=== PATIENT | male | born 1975 | race Caucasian/White ===

== ENCOUNTER 2022-11-26 10:55 | Day surgery (SDC) | payer BC ==
[~2022-11-26] VITALS: Ht 180 cm; Wt 84.0 kg
[~2022-11-26 10:55] MED LIST: KETO-22 PO
--- NOTE | 2022-11-26 11:34 | ED Integumentary General ---
General Chief Complaint: Skin/Wound Problems Stated Complaint: ABSCESS NEAR ANUS Nursing Triage Note: pt has abscess to left side perianal area. pt has had ongoing issues with abscess x 13yrs but this flare up began 1wk ago. pt reports pain and white drainage from abscess. Source: patient Exam Limitations: no limitations History of Present Illness Date Seen by Provider: Nov 26, 2022 Time Seen by Provider: 11:31 Initial Comments Patient is a 47-year-old male with a history of perianal abscess around 13 years ago presents ED for rectal pain. States he started having severe pain on Tuesday. Went to [facility] and waited for 6 hours and was not seen. He states he felt relief of pressure and drainage around his anus. Patient felt fine Tuesday. Started having pain Tuesday with bowel movements. This pain progressed to got worse especially today. Attempted to have a bowel movement today and had severe pain. Noted purulent drainage from the potential abscess versus his anus. States 13 years ago he had a general surgeon surgically drain his abscess. Patient reports increasing perianal pressure and pain. Denies fever, chills, nausea, vomiting, diarrhea. Difficulty having bowel movements Allergies and Home Medications Allergies Coded Allergies: No Known Drug Allergies (Unverified , 06/07/13) Patient Home Medication List Home Medication List Reviewed: Yes Ketorolac Tromethamine (Toradol) 10 Mg Tablet, 10 MG PO Q6-8 HOURS PRN Prescribed by: PLACIDO LAN on 06/07/13 0807 Review of Systems Review of Systems Constitutional: No chills, No diaphoresis, No malaise EENTM: No ear pain, No blurred vision, No double vision, No mouth pain Respiratory: No cough, No short of breath Cardiovascular: No chest pain Gastrointestinal: No abdominal pain, No diarrhea, No nausea, No vomiting Genitourinary: No decreased output Musculoskeletal: No back pain, No joint pain, No joint swelling, No muscle pain Skin: change in color, other (Abscess perianal) All Other Systems Reviewed Negative Unless Noted: Yes Past Gzigesy-Vwcgrm-Yczrvy Hx Patient Social History Tobacco Use?: No Substance use?: No Alcohol Use?: No Immunizations Up To Date Influenza Vaccine Up-to-Date: No; Not Current Past Medical History Adverse Reaction/Blood Tranf: No Physical Exam Vital Signs Vital Signs - First Documented 11/26/22 11:12 Temp 36.1 Pulse 88 Resp 18 B/P (MAP) 157/109 (125) Pulse Ox 98 O2 Delivery Room Air Capillary Refill : Less Than 3 Seconds General Appearance: WD/WN, no apparent distress HEENT: PERRL/EOMI, normal ENT inspection, TMs normal, pharynx normal Neck: non-tender, full range of motion, supple, normal inspection Cardiovascular: regular rate, rhythm, no edema, no gallop, no JVD Respiratory: chest non-tender, lungs clear, normal breath sounds, no respiratory distress, no accessory muscle use Gastrointestinal: normal bowel sounds, non tender, soft, no organomegaly Back: normal inspection, no CVA tenderness Extremities: normal range of motion, non-tender, normal inspection, no pedal edema 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 Potential abscess with mild drainage noted to the left lower buttock.. Perianal tenderness with induration. Normal rectal tone.) Lymphatic: no adenopathy Progress/Results/Core Measures Results/Orders Lab Results Laboratory Tests Test 11/26/22 11:45 Range/Units White Blood Count 6.5 4.3-11.0 10^3/uL Red Blood Count 4.58 4.30-5.52 10^6/uL Hemoglobin 13.6 13.3-17.7 g/dL Hematocrit 38 L 40-54 % Mean Corpuscular Volume 83 80-99 fL Mean Corpuscular Hemoglobin 30 25-34 pg Mean Corpuscular Hemoglobin Concent 36 32-36 g/dL Red Cell Distribution Width 12.0 10.0-14.5 % Platelet Count 204 130-400 10^3/uL Mean Platelet Volume 9.3 9.0-12.2 fL Immature Granulocyte % (Auto) 0 % Neutrophils (%) (Auto) 58 42-75 % Lymphocytes (%) (Auto) 30 12-44 % Monocytes (%) (Auto) 9 0-12 % Eosinophils (%) (Auto) 2 0-10 % Basophils (%) (Auto) 1 0-10 % Neutrophils # (Auto) 3.8 1.8-7.8 10^3/uL Lymphocytes # (Auto) 1.9 1.0-4.0 10^3/uL Monocytes # (Auto) 0.6 0.0-1.0 10^3/uL Eosinophils # (Auto) 0.2 0.0-0.3 10^3/uL Basophils # (Auto) 0.0 0.0-0.1 10^3/uL Immature Granulocyte # (Auto) 0.0 0.0-0.1 10^3/uL Sodium Level 140 135-145 MMOL/L Potassium Level 3.7 3.6-5.0 MMOL/L Chloride Level 104 98-107 MMOL/L Carbon Dioxide Level 23 21-32 MMOL/L Anion Gap 13 5-14 MMOL/L Blood Urea Nitrogen 11 7-18 MG/DL Creatinine 1.01 0.60-1.30 MG/DL Estimat Glomerular Filtration Rate 91 BUN/Creatinine Ratio 11 Glucose Level 310 H 70-105 MG/DL Calcium Level 8.6 8.5-10.1 MG/DL Corrected Calcium 8.8 8.5-10.1 MG/DL Total Bilirubin 0.5 0.1-1.0 MG/DL Aspartate Amino Transf (AST/SGOT) 13 5-34 U/L Alanine Aminotransferase (ALT/SGPT) 21 0-55 U/L Alkaline Phosphatase 77 40-136 U/L Total Protein 6.6 6.4-8.2 GM/DL Albumin 3.8 3.2-4.5 GM/DL My Orders Orders - GISELL ANDUJAR Cbc With Automated Diff (11/26/22 11:29) Comprehensive Metabolic Panel (11/26/22 11:29) Ct Pelvis W (11/26/22 11:29) Iohexol Injection (Omnipaque 350 Mg/Ml 1 (11/26/22 11:45) Received Contrast (Hold Metformin- Contr (11/26/22 11:45) Ns (Ivpb) (Sodium Chloride 0.9% Ivpb Bag (11/26/22 11:45) Medications Given in ED Current Medications Medications Dose Ordered Sig/Danie Route Start Time Stop Time Status Last Admin Dose Admin Iohexol 100 ml ONCE ONCE IV 11/26/22 11:45 11/26/22 11:46 DC 11/26/22 12:06 80 ML Sodium Chloride 100 ml ONCE ONCE IV 11/26/22 11:45 11/26/22 11:46 DC 11/26/22 12:06 80 ML Vital Signs/I&O 11/26/22 11:12 Temp 36.1 Pulse 88 Resp 18 B/P (MAP) 157/109 (125) Pulse Ox 98 O2 Delivery Room Air Blood Pressure Mean: 125 Departure Communication (PCP) Reviewed previous ER visits, H&P, lab testing. Anal pain, perineal pain since Tuesday. History of perianal abscess drained 13 years ago. Started having pain on Tuesday with drainage. This pain continue difficulty with bowel movements. On exam does have a area of scar tissue from the previous area of drainage. Concerning for fistula versus deep abscess. Differential diagnosis of perianal abscess, deep fascia gluteal abscess, fistula. CBC, CMP was ordered. CBC CMP grossly unremarkable. Afebrile and does not appear toxic. CT scan of the [place] is concerning for a fistula from the anal verge to the perioneal jeanette along the gluteal crease. Patient was discussed with Dr. Chavira general surgeon who recommended taking person to surgery for incision and drainage with possible debridement, rectal exam under anesthesia. Patient will be going to the OR. Patient last ate around 745. Currently NPO. Impression Primary Impression: Perianal fistula Disposition: 30 STILL A PATIENT Condition: Stable Departure-Patient Inst. Decision time for Depature: 12:38 Referrals: NO,LOCAL PHYSICIAN (PCP/Family) Primary Care Physician GISELL ANDUJAR Nov 26, 2022 11:34
[2022-11-26] MEDS ORDERED: NS 100 ML (IVPB) BAG IV ONE (11:45)
[2022-11-26] MEDS ORDERED: IOHEXOL 350 MG/ML 100 ML (OMNIPAQUE 350) VIAL IV ONE (11:45)
[2022-11-26] MEDS ORDERED: HOLD METFORMIN - RECEIVED CONTRAST 20 ML VIAL IV SCH (11:45)
[2022-11-26 11:55] LABS: BASOPHILS % (AUTO) 1 % (0-10); EOSINOPHILS # (AUTO) 0.2 10^3/uL (0.0-0.3); EOSINOPHILS % (AUTO) 2 % (0-10); HEMATOCRIT 38 % (40-54); HEMOGLOBIN 13.6 g/dL (13.3-17.7); LYMPHOCYTES # (AUTO) 1.9 10^3/uL (1.0-4.0); LYMPHOCYTES % (AUTO) 30 % (12-44); MEAN CORPUSCULAR HEMOGLOBIN 30 pg (25-34); MEAN CORPUSCULAR HGB CONC 36 g/dL (32-36); MEAN CORPUSCULAR VOLUME 83 fL (80-99); MEAN PLATELET VOLUME 9.3 fL (9.0-12.2); MONOCYTES # (AUTO) 0.6 10^3/uL (0.0-1.0); MONOCYTES % (AUTO) 9 % (0-12); NEUTROPHILS # (AUTO) 3.8 10^3/uL (1.8-7.8); NEUTROPHILS % (AUTO) 58 % (42-75); PLATELET COUNT 204 10^3/uL (130-400); WHITE BLOOD COUNT 6.5 10^3/uL (4.3-11.0)
[2022-11-26 12:04] LABS: ALBUMIN 3.8 GM/DL (3.2-4.5)
[2022-11-26 12:05] LABS: POTASSIUM 3.7 MMOL/L (3.6-5.0)
[2022-11-26 12:06] LABS: CALCIUM 8.6 MG/DL (8.5-10.1)
[2022-11-26 12:07] LABS: TOTAL PROTEIN 6.6 GM/DL (6.4-8.2)
[2022-11-26 12:09] LABS: BILIRUBIN,TOTAL 0.5 MG/DL (0.1-1.0)
[2022-11-26 12:11] LABS: CREATININE SERUM 1.01 MG/DL (0.60-1.30)
--- NOTE | 2022-11-26 12:22 | Diagnostic Imaging Report ---
PROCEDURE: CT pelvis with contrast. TECHNIQUE: Oral and intravenous contrast were administered with pelvic CT performed. Auto Exposure Controls were utilized during the CT exam to meet ALARA standards for radiation dose reduction. INDICATION: Perianal abscess. COMPARISON: None available. FINDINGS: There is a rim-enhancing tract extending from the anal verge into the left perineal along the lateral margin of the gluteal crease. There are few foci of air within the tract and some low attenuation in the distal aspect. The tract appears to communicate with the skin and is most likely a perianal fistula. No inflammatory changes above the anal sphincter. No intraperitoneal fluid collection or free fluid. Appendix is normal. Urinary bladder is normal. No avascular necrosis of the femoral heads. IMPRESSION: 1. Left perianal fistula forms communication with the left perineal skin. There is potential pus within the fistula tract. 2. No intraperitoneal inflammatory changes to suggest supra-sphenteric extension. Dictated by: Dictated on workstation # [id number]
--- NOTE | 2022-11-26 13:36 | Consultation - Surgery ---
JUSTA AZEVEDO 11/26/22 1336: History of Present Illness History of Present Illness Patient Consulted On(jessi/time) 11/26/22 13:20 Date Seen by Provider: Nov 26, 2022 Time Seen by Provider: 13:00 Reason for Visit: Perianal Pain History of Present Illness Pt is a 47yo male brought in by ambulance seen lying on his side in mild distress, he is A&O x4 he is being consulted for possible abscess Incision and drainage, he said the pressure was noticed first last tuesday11/19/22, it then progressively worsened on the following tuesday and he said that he didnt get any medical assistance for it and that it felt like "the abscess popped and the pressure went away". He then did nothing else to treat it and says the pressure began to worsen and that when he defecated it felt like pressure was going into both holes. He has a history of internal hemorrhoids(since 24yo) which he has never done anything to treat them and a past perianal abcess that he had 13 years ago, he said that he didnt remember who the doctor was, but that he had done a "freezing technique three times" on the site of the past abscess as a form of treatment. The current site of the abscess/fistula is very sensitive and painful he rates it an 8/10 walking or sitting, 10/10 when palpated, and 5/10 laying on his side. There is visible purulent discharge with a mucoid like composition. He reports a 1/10 discomfort in his lower left quadrant and denies: lightheadedness, headache, chills, fever, sweats, chest pain, SOB, muscle weakness. Allergies and Home Medications Allergies Coded Allergies: No Known Drug Allergies (Unverified , 06/07/13) Patient Home Medication List Ketorolac Tromethamine (Toradol) 10 Mg Tablet, 10 MG PO Q6-8 HOURS PRN Prescribed by: PLACIDO LAN on 06/07/13 0858 Past Bawteye-Ykhawq-Njyeyf Hx Patient Social History Alcohol Use?: No Have you traveled recently?: No Respiratory History of Respiratory Disorde: No Cardiovascular History of Cardiac Disorders: No Neurological History of Neurological Disord: No Gastrointestinal Gastrointestinal Disorders: Hemorrhoids Musculoskeletal History of Musculoskeletal Dis: No Endocrine History of Endocrine Disorders: No Cancer History of Cancer: No Blood Transfusions Adverse Reaction to a Blood Tr: No Review of Systems-General Constitutional: No no symptoms reported, No chills, No diaphoresis, No dizziness, No weakness, No weight loss (He said he lost weight but it wasnt acute, and was due to him changing his diet) EENTM: no symptoms reported Respiratory: no symptoms reported; No short of breath Cardiovascular: no symptoms reported; No chest pain Gastrointestinal: LLQ (08/24 says its an annoying pressure); No nausea, No vomiting; other (Perianal pain and rectal pressure) Genitourinary: No dysuria, No incontinence Musculoskeletal: no symptoms reported Skin: see HPI, lesions, other (abscess reported near gluteal fold/perineam ) Psychiatric/Neurological: No Symptoms Reported; Denies Headache, Denies Numbness Physical Exam-General Problems Physical Exam Vital Signs Vital Signs - First Documented 11/26/22 11:12 Temp 36.1 Pulse 88 Resp 18 B/P (MAP) 157/109 (125) Pulse Ox 98 O2 Delivery Room Air Capillary Refill : Less Than 3 Seconds General Appearance: WD/WN, moderate distress Eyes: Bilateral Eye PERRL, Bilateral Eye EOMI HEENT: PERRL/EOMI; No scleral icterus (R), No scleral icterus (L), No photophobia Neck: non-tender, full range of motion Respiratory: chest non-tender, lungs clear, no respiratory distress, no access ory muscle use Cardiovascular: regular rate, rhythm, no edema, no murmur Peripheral Pulses: 2+ Dorsalis Pedis (R), 2+ Left Dors-Pedis (L), 2+ Radial Pulses (R), 2+ Radial Pulses (L) Gastrointestinal: soft, no pulsatile mass; No distended, No guarding; tenderness (LLQ 10) Rectal: tenderness, other (puritic cavity with adjacent firm suspected abcess 3-4cm anteriorly lateral to external anal sphincter on left side) Genital/Rectal: No blood at urethral meatus, No decreased rectal tone Back: no vertebral tenderness; No decreased range of motion Extremities: no pedal edema, no calf tenderness Neurologic/Psychiatric: alert, oriented x 3; No aphasia Skin: warm/dry (Lesions in rectal region), other Data Review Labs Laboratory Tests 11/26/22 11:45: White Blood Count 6.5, Red Blood Count 4.58, Hemoglobin 13.6, Hematocrit 38L, Mean Corpuscular Volume 83, Mean Corpuscular Hemoglobin 30, Mean Corpuscular Hemoglobin Concent 36, Red Cell Distribution Width 12.0, Platelet Count 204, Mean Platelet Volume 9.3, Immature Granulocyte % (Auto) 0, Neutrophils (%) (Auto) 58, Lymphocytes (%) (Auto) 30, Monocytes (%) (Auto) 9, Eosinophils (%) (Auto) 2, Basophils (%) (Auto) 1, Neutrophils # (Auto) 3.8, Lymphocytes # (Auto) 1.9, Monocytes # (Auto) 0.6, Eosinophils # (Auto) 0.2, Basophils # (Auto) 0.0, Immature Granulocyte # (Auto) 0.0, Sodium Level 140, Potassium Level 3.7, Chloride Level 104, Carbon Dioxide Level 23, Anion Gap 13, Blood Urea Nitrogen 11, Creatinine 1.01, Estimat Glomerular Filtration Rate 91, BUN/Creatinine Ratio 11, Glucose Level 310H, Calcium Level 8.6, Corrected Calcium 8.8, Total Bilirubin 0.5, Aspartate Amino Transf (AST/SGOT) 13, Alanine Aminotransferase (ALT/SGPT) 21, Alkaline Phosphatase 77, Total Protein 6.6, Albumin 3.8 Assessment/Plan Assessment/Plan Assessment/Plan Perianal fistula perianal abscess * start on IV Zosin for gram negative/positive coverage * Start NPO diet (ate [employer] at 8am, this morning) * perform Incision and Drainage with packing tomorrow * discuss sealing off of fistula in future. * Pt agreeable to the idea of I&D if needed LITA JIMENES DO 11/26/22 1535: History of Present Illness History of Present Illness Time Seen by Provider: 14:26 History of Present Illness Surgery asked to consult regarding abdirahman-rectal abscess. HPI per ER: Patient is a 47-year-old male with a history of perianal abscess around 13 years ago presents ED for rectal pain. States he started having severe pain on Tuesday. Went to [facility] and waited for 6 hours and was not seen. He states he felt relief of pressure and drainage around his anus. Patient felt fine Tuesday. Started having pain Tuesday with bowel movements. This pain progressed to got worse especially today. Attempted to have a bowel movement today and had severe pain. Noted purulent drainage from the potential abscess versus his anus. States 13 years ago he had a general surgeon surgically drain his abscess. Patient reports increasing perianal pressure and pain. Denies fever, chills, nausea, vomiting, diarrhea. Difficulty having bowel movements When I spoke to pt he stated he was still in pain and wanted to get something done. Allergies and Home Medications Allergies Coded Allergies: No Known Drug Allergies (Unverified , 06/07/13) Patient Home Medication List Home Medication List Reviewed: Yes Ketorolac Tromethamine (Toradol) 10 Mg Tablet, 10 MG PO Q6-8 HOURS PRN Prescribed by: PLACIDO LAN on 06/07/13 0807 Past Nodgtmz-Wpvvxw-Jthqod Hx Patient Social History Smoking Status: Never a Smoker Alcohol Use?: No Surgeries History of Surgeries: Yes (previous attempts at "freezing" rectal abscess) Respiratory History of Respiratory Disorde: No Cardiovascular History of Cardiac Disorders: No Neurological History of Neurological Disord: No Reproductive System Hx Reproductive Disorders: No Genitourinary History of Genitourinary Disor: No Gastrointestinal History of Gastrointestinal Di: Yes (previous abdirahman-rectal abscesses) Gastrointestinal Disorders: Hemorrhoids Musculoskeletal History of Musculoskeletal Dis: No Endocrine History of Endocrine Disorders: No HEENT History of HEENT Disorders: Yes (decreased vision, needs glasses) Hearing Impairment: Denies Cancer History of Cancer: No Psychosocial History of Psychiatric Problem: No Integumentary History of Skin or Integumenta: No Family Medical History Significant Family History: Heart Disease (Mother), Diabetes (Mother) Review of Systems-General Constitutional: No chills, No diaphoresis, No dizziness, No weakness EENTM: No blurred vision, No mouth swelling, No epistaxis Respiratory: No hemoptysis, No short of breath Cardiovascular: No chest pain, No palpitations Gastrointestinal: LLQ (08/24 says its an annoying pressure); No nausea, No vomiting; other (Perianal pain and rectal pressure) Genitourinary: No dysuria, No incontinence Musculoskeletal: No back pain, No muscle cramps Skin: lesions, other (abscess reported near gluteal fold/perineam ) Psychiatric/Neurological: Denies Headache, Denies Numbness Physical Exam-General Problems Physical Exam General Appearance: WD/WN, moderate distress (secondary to pain) Eyes: Bilateral Eye PERRL, Bilateral Eye EOMI HEENT: No scleral icterus (R), No scleral icterus (L), No photophobia; other ( mucous membranes moist) Neck: non-tender, supple Respiratory: chest non-tender, lungs clear, normal breath sounds, no respiratory distress, no accessory muscle use Cardiovascular: regular rate, rhythm, no edema, no murmur Gastrointestinal: soft, no organomegaly; No distended, No guarding; tenderness (LLQ 1/10), hernia (umbilical hernia) Rectal: tenderness, other (3-4cm anteriorly lateral to external anal sphincter on left side small opening with adjacent firm area, could be an abcess ) Back: no CVA tenderness, no vertebral tenderness Extremities: no pedal edema, no calf tenderness Neurologic/Psychiatric: no motor/sensory deficits, alert, oriented x 3 Skin: warm/dry (Lesions in rectal region), other Lymphatic: no adenopathy (neck or axill) Data Review Radiology Date of Exam:11/26/22 CT PELVIS W PROCEDURE: CT pelvis with contrast. TECHNIQUE: Oral and intravenous contrast were administered with pelvic CT performed. Auto Exposure Controls were utilized during the CT exam to meet ALARA standards for radiation dose reduction. INDICATION: Perianal abscess. COMPARISON: None available. FINDINGS: There is a rim-enhancing tract extending from the anal verge into the left perineal along the lateral margin of the gluteal crease. There are few foci of air within the tract and some low attenuation in the distal aspect. The tract appears to communicate with the skin and is most likely a perianal fistula. No inflammatory changes above the anal sphincter. No intraperitoneal fluid collection or free fluid. Appendix is normal. Urinary bladder is normal. No avascular necrosis of the femoral heads. IMPRESSION: 1. Left perianal fistula forms communication with the left perineal skin. There is potential pus within the fistula tract. 2. No intraperitoneal inflammatory changes to suggest supra-sphenteric extension. Dictated by: Dictated on workstation # [id number] Dict: 11/26/22 1211 Trans: 11/26/22 1314 [id number] Interpreted by: MARGARITO CRANDALL MD Electronically signed by: MARGARITO CRANDALL MD 11/26/22 9178 Assessment/Plan Assessment/Plan Assessment/Plan Perirectal abscess and cavity, r/o fistula * start on IV Zosin for gram negative/positive coverage * Start NPO diet (ate [employer] at 8am, this morning) * Plant to perform Incision and Drainage with possible packing I spoke to pt and gave him 3 options: 1) attempt I&D at bedside 2) Start ABX, flush area and send home with plan to do I&D and possible exploration as outpt 3) Go to OR today for I&D, REUA and possible seton placement Pt wants to get it done and chose option #3; will get consent and take to the OR once it has been 8 hours since he ate and when OR is available. All questions answered to pt's satisfaction. Supervisory-Addendum Brief Verification & Attestation Participated in pt care: history, MDM, physical Personally performed: exam, history, MDM, supervision of care Care discussed with: Medical Student Procedures: n/a Verification and Attestation of Medical Student E/M Service A medical student performed and documented this service. I then reviewed and verified all information documented by the medical student and made modification s to such information, when appropriate. I personally performed a physical exam, medical decision making and then discussed any differences between the notes and made revisions as necessary to create one note. Lita Jimenes , 11/26/22 , 15:42 JUSTA AZEVEDO Nov 26, 2022 13:36 LITA JIMENES DO Nov 26, 2022 15:35
[2022-11-26] MEDS ORDERED: LACTATED RINGERS 1,000 ML IV PRN (16:30)
[2022-11-26] MEDS ORDERED: MIDAZOLAM 2 MG/2 ML (VERSED) VIAL ONE (17:21)
[2022-11-26] MEDS ORDERED: fentaNYL INJ 100 MCG/2 ML AMP ONE (17:21)
[2022-11-26] MEDS ORDERED: ceFAZolin INJECTION 2,000 MG ONE (17:37)
[2022-11-26] MEDS ORDERED: LIDOCAINE PF 2% 5 ML (XYLOCAINE) VIAL ONE (17:47)
[2022-11-26] MEDS ORDERED: ONDANSETRON 4 MG/2 ML (SDV) Z0FRAN ONE (17:47)
[2022-11-26] MEDS ORDERED: proPOfol 200 MG/20 ML (DIPRIVAN) VIAL IV ONE (17:47)
[2022-11-26] MEDS ORDERED: LIDOCAINE/EPI 1%-1:100,000 (XYLOCAINE) 20ML ONE (17:50)
[2022-11-26] MEDS ORDERED: SEVOFLURANE (ULTANE) 15 ML INHAL SOLN ONE (18:05)
[2022-11-26 18:12] VITALS: BP 117/76
[2022-11-26] MEDS ORDERED: KETOROLAC 30 MG/ML VIAL ONE (18:17)
[2022-11-26 18:20] VITALS: BP 134/88
--- NOTE | 2022-11-26 18:22 | Progress Note-Post Operative ---
Post-Operative Progess Note Surgeon (s)/Veterinary Surgery Technician (s) Surgeon LITA JIMENES DO Veterinary Surgery Technician: DREA Bui Pre-Operative Diagnosis Sudha-rectal abscess Post-Operative Diagnosis Sudha-rectal fistula Sudha-anal abscess Procedure & Operative Findings Date of Procedure 11/26/22 Procedure Performed/Findings Debridement perianal Abscess Rectal Exam Under Anesthesia Placement of Seton Anesthesia Type LMA Estimated Blood Loss Estimated blood loss (mL): scant Specimens/Packing Specimens Removed fibrotic tissue Packing: #[id number] LITA JIMENES DO Nov 26, 2022 18:22
[2022-11-26] MEDS ORDERED: ACHYD1T PO (18:27)
--- NOTE | 2022-11-26 18:27 | Anesthesia-General Post-Op ---
General Patient Condition Mental Status/LOC: Same as Preop Cardiovascular: Satisfactory Nausea/Vomiting: Absent Respiratory: Satisfactory Pain: Controlled Complications: Absent Post Op Complications Complications None Follow Up Care/Instructions Patient Instructions None needed. Anesthesia/Patient Condition Patient Condition Patient is doing well, no complaints, stable vital signs, no apparent adverse anesthesia problems. No complications reported per nursing. CELESTE PHAN CRNA Nov 26, 2022 18:27
--- NOTE | 2022-11-26 18:29 | Discharge Inst-Surgical ---
Discharge Inst-Surgical Depart Medication/Instructions New, Converted or Re-Newed RX: Transmitted to Pharmacy Patient Instructions Follow up Appt: Make appointment for 1 week. [phone] Instructions: May shower in 24 hours, no tub bath or soaking. Use incentive spirometer at home as directed. No Smoking Skin/Wound Care: May remove bandages in am. You need to leave the suture in place and it will fall out on it's own. Symptoms to Report: Appetite Changes, Extremity Discoloration, Numbness/Tingling, Swelling Increased, Bleeding Excessive, Eyesight Changes, Pain Increased, Urine Color Change, Constipation(Persistent), Fever over 101 degree F, Pain/Pressure in chest, Urinating Difficulty, Cough Up/Vomit Blood, Heart Beat Irreg/Pounding, P ain/Pressure in jaw, Cramps in feet or legs, Lightheadedness, Pain/Pressure in shoulder, Diarrhea(Persistent), Memory Changes Suddenly, Questions/Concerns, Weight gain consecutive days, Dizziness/Fainting, Nausea/Vomiting, Shortness of Breath, Weight gain over 2 pounds If questions or concerns contact your physician Or seek help at emergency department. Activity Activity as Tolerated: Yes Activity Instructions: Avoid Stress to Incision Driving Instructions: No Driving/Refer to Diet Discharge Diet: No Restrictions (increase fluids and fiber) Diet After 24 Hours: Clear Liquid if Nauseous If Any Problems/Questions/Issu: Contact Your Physician, Go to Emergency Room Skin/Wound Care Infection Signs and Symptoms: Increased Redness, Foul Odor of Wound, Increased Drainage, Skin Itchy or Has a Rash, Increased Swelling, Temperature Above 101 F Wound Care Comment: Sitz baths daily to help clean area, otherwise keep clean and dry. Using pad in the area will help Bathing Instructions: Shower Stitches/Essence/Dermabond Dis: Care of Stitches LITA JIMENES DO Nov 26, 2022 18:29
[2022-11-26 18:30] VITALS: BP 144/88
[2022-11-26] MEDS ORDERED: ONDANSETRON 4 MG/2 ML (SDV) Z0FRAN IVP PRN (18:30)
[2022-11-26] MEDS ORDERED: fentaNYL INJ 100 MCG/2 ML AMP IVP ONE (18:30)
[2022-11-26] MEDS ORDERED: morphine INJ 10 MG/ML 1ML (SYR OR VIAL) IVP ONE (18:30)
[2022-11-26 18:40] VITALS: BP 144/89
[2022-11-26 18:50] VITALS: BP 150/85
[2022-11-26 20:00] VITALS: BP 141/82
--- NOTE | 2022-11-27 00:59 | OPERATIVE REPORT ---
DATE OF SERVICE: 11/26/2022 PREOPERATIVE DIAGNOSIS: Perirectal abscess. POSTOPERATIVE DIAGNOSES: Perirectal fistula and perianal abscess. PROCEDURES: 1. Debridement of perianal abscess. 2. Rectal exam under anesthesia. 3. Placement of Seton. SURGEON: Crow Chavira DO DONOR RELATIONS COORDINATOR: Pedro Casey MS3. ANESTHESIA: LMA. SPECIMEN: Fibrotic tissue. BLOOD LOSS: Scant. FLUIDS: Per anesthesia. POSTOPERATIVE CONDITION: Stable. INDICATIONS FOR PROCEDURE: The patient is a 47-year-old male who came in with abscess was very tender appeared to be almost invaginating, it was at about the 2 o'clock position when he was in lithotomy, elected to go to surgery to assess this and try to repair. FINDINGS: The patient had a perianal abscess. He had a perirectal fistula. PROCEDURE NOTE: After informed consent was obtained, the patient was brought to the operating room and placed on the table in lithotomy position. He was sterilely prepped and draped in normal fashion. Local lidocaine used to perform ischial tuberosity blocks as well as then blocks around the abscess, which was at the 2 o'clock position. I elected to first start using a 20-gauge Angiocath with some hydrogen peroxide in the syringe, found an area in this invagination with the catheter kind of went down and then shot some hydrogen peroxide down there, came out of an opening in the area above the invagination and then could see what looked like little bubbles coming from the rectum, but when I looked with the speculum, I could not see anything. I then did a speculum. I then did a digital rectal exam, did not feel any masses. Looked with the speculum could not really see any holes. Looked around and completely circumferentially in the rectum looked, around the rest of the rectum did not see anything, there was a firm mass under the skin again near this invagination. Next, I then carefully started opening this invagination and cutting away some of this fibrotic tissue. [ ] actually being drawn in an almost down towards the sphincter, opened this up with Bovie electrocautery cutting and open and continued to try and find that there was a fistula with the hydrogen peroxide and then gently using some micro probes able to follow the fistula tract and then with a finger in the rectum could feel it and feel it coming right through the opening in the rectum. Once this was done, I then grasped a 0 silk suture and brought out through this fistula. This was [ ] in half and then tied this down tight to create a Seton. I then continued opening and removing some fibrotic tissue to open this area up using Bovie electrocautery. Once this was opened up, then I copiously irrigated with normal saline. Hemostasis was obtained using Bovie electrocautery and at this time then area was cleaned and dried, dressings placed. The patient tolerated the procedure and was transferred to recovery room in stable condition. Sponge and needle count correct at the end of the case. Job ID: [id number] DocumentID: [id number] Dictated Date: 11/26/2022 18:25:42 Mechanics Handyman Date: 11/27/2022 00:56:00 Dictated By: CROW CHAVIRA DO
== END 2022-11-26 21:30 | disposition home or self-care (01) ==
LOC: EDUNIT# 10:55 → ER 10:58 → SDC 16:14 → 4TH 19:47 → SDC 21:30
PROVIDERS: ATTEND Surgery
DX: K61.2 Anorectal abscess (principal)
CPT/HCPCS: 36415; 72193; 80053; 85025